=== PATIENT | female | born 1980 | race Two or more races ===

== ENCOUNTER 2017-12-09 06:15 | Day surgery (SDC) | payer OTHER | END 2017-12-09 10:30 | disposition home or self-care (01) | LOC: CIR.AMB 06:15 | DX: N84.0 Polyp of corpus uteri (principal) ==

== ENCOUNTER 2019-02-21 15:29 | Inpatient (IN) | payer OTHER ==
[~2019-02-21] VITALS: Ht 165.1 cm; Wt 3.2 kg
[2019-03-01] MEDS ORDERED: PROAIR HFA8.5 GM IH ×2 (15:20)
[2019-03-09] MEDS ORDERED: PRENATAL TABLE1 EAC1 PO (06:32)
[2019-03-12] MEDS ORDERED: KETO10TA2 PO (10:39)
[2019-03-12] MEDS ORDERED: OXYC1TAB9 PO (10:39)
== END 2019-03-12 14:39 | disposition home or self-care (01) | DRG 788 ==
LOC: O/R 03-09 06:00 → SURG-SUITE 03-09 06:00 → OB/GYN 03-09 11:15 → SURG-SUITE 03-09 11:15 → OB/GYN 03-09 15:30 → SURG-SUITE 03-12 14:39
PROVIDERS: ADMIT Obstetrics & Gynecology
PROC: 4A1HXCZ Monitoring of Products of Conception, Cardiac Rate, External Approach (ICD-10-PCS; 2019-03-09)
PROC: 10D00Z1 Extraction of Products of Conception, Low, Open Approach (ICD-10-PCS; principal; 2019-03-09 11:15)
DX: O82 Encounter for cesarean delivery without indication (principal); Z3A.38 38 weeks gestation of pregnancy; Z37.0 Single live birth; Z22.330 Carrier of Group B streptococcus

== ENCOUNTER 2024-05-17 06:00 | Outpatient (CLI) | payer OTHER ==
[~2024-05-17 06:00] MED LIST: KETO10TA2 PO; OXYC1TAB9 PO; PRENATAL TABLE1 EAC1 PO; PROAIR HFA8.5 GM IH
[2024-05-17 16:35] LABS: PARTIAL THROMBOPLASTIN TIME 24.4 SECONDS (22.0-34.0); PROTHROMBIN TIME 10.9 SECONDS (9.0-11.5)
[2024-05-17 16:39] LABS: ALBUMIN 3.7 gm/dL (3.4-5.0); BILIRUBIN TOTAL 0.28 mg/dL (0.3-1.2); CALCIUM 9.4 mg/dL (8.5-10.1); CREATININE SERUM 0.59 mg/dL (0.55-1.02); GFR 111.78; POTASSIUM 4.13 mEq/L (3.5-5.1); TOTAL PROTEIN 7.7 gm/dL (6.4-8.2)
[2024-05-17 17:09] LABS: HEMATOCRIT 28.5 % (36.0-45.00); MEAN CORPUSCULAR HGB CONC 29.9 g/dl (32.0-36.0); RED BLOOD COUNT 4.94 M/uL (4.00-6.00)
[2024-05-17 17:25] LABS: HEMOGLOBIN 8.5 g/dL (12.0-15.00); MEAN CELL VOLUME 57.6 fL (80.00-100.00); MEAN CORPUSCULAR HEMOGLOBIN 17.2 pg (27.00-32.0); PLATELET COUNT 347 K/uL (150-450); RED CELL DISTRIBUTION WIDTH 21.1 % (11.5-14.5)
== END 2024-05-17 06:01 | disposition home or self-care (01) ==
LOC: LAB 06:00 → EDSTATUS 05-18 09:01 → CIR.AMB 05-18 15:19
PROVIDERS: ATTEND Obstetrics & Gynecology
DX: D28.0 Benign neoplasm of vulva (principal)